=== PATIENT | male | born 1985 | race Caucasian/White ===

== ENCOUNTER → 2024-09-05 13:19 | Outpatient (BNVA) | payer SELFPAY | PROVIDERS: Visit Provider Physician Assistant | DX: Z02.79 Encounter for issue of other medical certificate (principal) ==

== ENCOUNTER → 2024-10-16 09:28 | Outpatient (REF) | payer OTHER, SELFPAY ==
--- NOTE | 2024-10-16 09:36 | ECG_ITS ---
Test Reason : R/O QTC [place] Blood Pressure : */* mmHG Vent. Rate : 113 BPM Atrial Rate : 113 BPM P-R Int : 170 ms QRS Dur : 90 ms QT Int : 316 ms P-R-T Axes : 87 90 64 degrees QTcB Int : 433 ms Sinus tachycardia Rightward axis Borderline ECG No previous ECGs available Referred By: Santa Kaplan Electronically Signed By: LILIAN ROBIN MD
--- OUTSIDE RECORDS SUMMARY | 2024-10-16 10:11 | XMS_ITS | Clinical Summary ---
Author Organization [employer] Address [address] [place] [address] Care Team Providers Care Mems Device Scientist Name Role Phone Unavailable Primary Care Provider Unavailabl e Social History Tobacco Use Types Packs/Day Years Used Date Smoking Tobacco: Never Assessed Sex and Gender Information Value Date Recorded Sex Assigned at Not on file Legal Sex Male 8:37 PM EDT Gender Identity Not on file Sexual Orientation Not on file Plan of Treatment Health Maintenance Due Date Last Done Comments Depression Screening 1984 Lipid Panel 1984 Alcohol/Substance Use Screening 1996 Tobacco Screening 1996 Family Planning (PISQ) 08/20/1999 DTaP/Tdap/Td Vaccines (1 - Tdap) 08/20/2003 Hepatitis B Vaccines (1 of 3 - 19+ 3-dose series) 08/20/2003 COVID-19 Vaccine ( - 2023-2 5 season) 2024 Influenza Vaccine (#1) 2024 Zoster Vaccines (1 of 2) 2034 RSV Patients and Pa tients Aged 60 years or older (1 - 1-dose 75+ series) 08/20/2059 HIB Vaccines Aged Out No longer eligi ble based on patient's age to complete this topic HPV Vaccines Aged Out No longer eligi ble based on patient's age to complete this topic Hepatitis A Vaccines Aged Out No long er eligible based on patient's age to complete this topic IPV Vaccines Aged Out No longer eligi ble based on patient's age to complete this topic Meningococcal Vaccine Aged Out No lorena bj eligible based on patient's age to complete this topic Pneumococcal Vaccine: Pediat rics (0 to 5 Years) and At-Risk Patients (6 to 49) Years) Aged Out No longer eligible b ased on patient's age to complete this topic RSV under 20 months Aged Out No longe r eligible based on patient's age to complete this topic Rotavirus Vaccines Aged Out No longer eligible based on patient's age to complete this topic
--- OUTSIDE RECORDS SUMMARY | 2024-10-16 10:11 | XMS_ITS | Data Portability ---
Author Organization ARN[facility] , [address] Address [address] [place] [address] Assessment No assessment recorded. Plan of Treatment Reminders Order Date Submit Date Provider Last Modified By Organization Details Last Modified Time Details Appointments None recorded. Lab None recorded. Referral None recorded. Procedures None recorded. Surgeries None recorded. Imaging None recorded. Medication Orders amoxicillin 875 mg-potassiu m clavulanate 125 mg tablet 2023 024 [facility] [place], [place], [address] [place], [address], 4 09:31:24 Patient TargetsNo targets recorded. Patient Instructions Encounter Date Encounter Id Patient Instructions Last Modified By Organization Details Last Modified Time 09/24/2023 [id number] abscessed tooth: care instructions [email or web address] Not available 09/24/2023 09:24:56 Reason for Referral None Reported. Problems Name Problem SNOMED Code Status Onset Date Resolution Date Notes Provider Name and Address Organization Details Recorded Time Dental abscess 664378366 Active 024 Ahmet Rodriguez NP [address] [place] [address] [place], [address] , [facility] 4 09:21:23 Problem Notes None recorded. Medical Equipment None Reported. Allergies Allergen ID Allergen Name Allergen Category Reaction Reaction Severity Criticality Documentation Date Start Date Code Code System Note Provider Name and Address Organization Details Recorded Time 643786 morphine medicatio n hallucina tions Not available Not available 09/24/2023 7052 [facility] ARNOLDO Ko [facility] 4 08:58:02 Medications Name Sig Start Date Stop Date Status Note LastModified by Organization Details LastModified Time clonidine HCl 0.1 mg tablet 09/23 completed Not Available Not Available Not Available trazodone 50 mg tablet TAKE 1 TABLET BY MOUTH DAILY AT BEDTIME active Not Available Not Available No t Available citalopram 10 mg tablet Take 1 Tablet by mouth daily. active Not Available Not Available No t Available naltrexone 50 mg tablet TAKE 1 TABLET BY MOUTH DAILY NEEDED 09/23 completed Not Available Not Available Not Available thiamine HCl (vitamin B1) 100 mg tablet TAKE 1 TABLET BY MOUTH DAILY IN THE MORNING active Not Available Not Available No t Available hydroxyzine pamoate 50 mg capsule Take 1 Capsule by mouth 3 times daily as needed for Anxiety. active Not Available Not Available No t Available propranolol 10 mg tablet 09/23 completed Not Available Not Available Not Available citalopram 20 mg tablet active Not Available Not Available Not Available trazodone 100 mg tablet TAKE 1 TAB BY MOUTH AT BEDTIME active Not Available Not Available No t Available lidocaine 5 % topical patch active Not Available Not Available Not Available folic acid 1 mg tablet Take 1 tablet every day by oral route in the morning for 28 days. active Not Available Not Available No t Available hydroxyzine HCl 25 mg tablet Take 1 Tablet by mouth 3 times daily as needed for Anxiety. active Not Available Not Available No t Available ergocalcifer ol (vitamin D2) 1,250 mcg (50,000 unit) capsule Take 1 Capsule by mouth once a week. active Not Available Not Available No t Available amoxicillin 875 mg-potassium clavulanate 125 mg tablet Take 1 tablet every 12 hours by oral route with meal(s) for 10 days, for tooth infectio n. active Not Available Not Available No t Available hydroxyzine pamoate 25 mg capsule TAKE 1 CAPSULE BY MOUTH 4 TIMES DAILY NEEDED FOR ANXIETY active Not Available Not Available No t Available cyclobenzapr ine 5 mg tablet active Not Available Not Available Not Available acamprosate 333 mg tablet,delay ed release TAKE 2 TABLETS BY MOUTH THREE TIMES DAILY FOR 7 DAYS active Not Available Not Available No t Available pregabalin 75 mg capsule take 1 capsule by mouth twice a day 09/23 completed Not Available Not Available Not Available Vivitrol 380 mg intramuscula r suspension,e xtended release 09/23 completed Not Available Not Available Not Available Vitals Date Recorded Body height Body mass index (BMI) Body weight Respiratory rate Pain severity - 0-10 verbal numeric rating [Score] - Reported Heart rate Oxygen saturation Oxygen saturation in Arterial blood by Pulse oximetry Body temperature Systolic blood pressure Diastolic blood pressure Provider Name and Address Organization Details Last Updated DateTime 172.72 cm 29.6 kg/m2 77938.5 1 g 18 /min 2 74 /min 100 % 100 % 97.9 [degF] 104 mm[Hg] 72 mm[Hg] Delores Haddad [employer] 09:03:19 Social History Question Answer Notes LastModified by [employer] Details LastModified Time Tobacco Smoking Status Current Every Day Smoker [facility] 09/24/2023 09:00:40 Have You Had A Flu Shot This Season? No Information not available 09/24/2023 If No, Would You Like A Flu Shot Today? No Information not available 09/24/2023 Have You Had Direct Contact, Or Contact During Intimacy, With Monkeypox Rash, Scabs, Or Body Fluids From A Person With Monkeypox? No Information not available 09/24/2023 What Was The Date Of Your Most Recent Tobacco Screening? 09/24/2023 Information not available 09/24/2023 How Much Tobacco Do You Smoke? 0.25 PPD Information not available 09/24/2023 Have You Recently Traveled Abroad? No Information not available 09/24/2023 Sex: Unknown Functional Status Question Answer Note LastModified by [employer] Details LastModified Time Do you use any illicit or recreational drugs? No Information not available 09/24/2023 Do you or have you ever used any other forms of tobacco or nicotine? No Information not available 09/24/2023 What is your level of alcohol consumption? Occasional Information not available 09/24/2023 Mental Status None recorded. Family History Relationship Description Onset Age of this Age Resolved Age Notes LastModified by Organization Details LastModified Time Father No current problems or disability Not available 09/23 08:59:57 Mother No current problems or disability Not available 09/23 08:59:57 Mother Diabetes mellitus Not available 2023 09:00:06 Medical History No medical history recorded. Immunizations Vaccine Type Date Status Note Provider Nam e and Address Organization Details Recorded Time Tdap 3 completed Delores herny PA - [facility] 09/24/2023 08:55:42 Td (adult), 2 Lf tetanus toxoid, preservative free, adsorbed 1 completed Delores henry PA - [facility] 09/24/2023 08:55:42 Td (adult), 2 Lf tetanus toxoid, preservative free, adsorbed 7 completed Delores henry PA - [facility] 09/24/2023 08:55:42 Past Encounters Encounter ID Performer Location Encounter Start Date Encounter Closed Date Diagnosis/Indication Diagnosis SNOMED-CT Code Diagnosis ICD10 Code Diagnosis Note [id number] [facility] [address] [place] [address] [id number] 05/12/2018 10:55:44 05/12/2018 11:11:[id number] [place] [address] [facility] [place] [address] [id number] 12/10/2018 11:11:30 12/10/2018 12:18:57 [id number] [facility] [address] [place] [address] [id number] 09/05/2018 12:59:58 09/05/2018 14:55:15 [id number] [address] [address] [place] [address] [id number] 03/31/2020 09:44:20 03/31/2020 10:32:[id number] [place], [place] [address] [address] [place] [address] [id number] 03/11/2022 18:39:14 03/11/2022 19:41:53 [id number] Ahmet Rodriguez NP [address] [place] [address] [id number] 09/24/2023 08:26:30 09/24/2023 09:32:52 Dental abscess [id number] K04.7 Based on your presentati on and exam, you are being treated for a Dental Infection. I am going to prescribe you and antibiotic to cover this infection. Please be sure to complete the full course of this antibiotic to prevent antibiotic resistance . Antibiotic s will typically take 4-5 days to start to work with symptom improvemen t. The following are my other recommenda tions to help with symptoms and is important for this diagnosis: 1. Take Ibuprofen or Tylenol if you do not have any allergies to these medication s. If you take a blood thinner you should not take NSAIDS like Ibuprofen. These medication will help with the inflammati on in your respirator y tract which should help the cough.2. Half Peroxide/H michelle Water Rinses3. Make an appointmen t with a dentist - tooth infection will be helped with antibiotic s but they usually just continue to reoccur. The only treatment is really a root canal or tooth extraction .4. Oralgel can help alleviate some of the symptoms - this can be purchased OTC5. Ice is ok to help with symptoms, but do not apply heat. I would be seen again if you develop any of the following symptoms.1 . Fever > 101.02. Stiff neck - where you can't turn your neck3. Trouble swallowing your saliva - drooling4. Swelling of a lymph node in your throat that is painful to touch5. Difficulty breathing6 . Severe Headache7. Significan t facial swelling especially if it move up close to your eye. Thank you for using [employer] today, please feel free to contact our office if you have any questions or concerns. Health Concerns Section Related Observation LastModified by Organization Detai ls LastModified Time None Recorded Concern Status LastModified by Organization Details LastModified Time None Recorded Advance Directives Directive None Recorded Payers Insurance Date Sequence Insurance Name Policy Number Policy Boudreaux Covered Member ID Boudreaux Member ID Guarantor Name 09/24/2023 1 [facility]ALTH NET PLAN (MEDICAID HMO) KRAIGBRENDASARANYA Larson [id number] Gael Larson Notes Date Note Type Note Provider Name and Address Organization Details Recorded Time 09/24/2023 text/html Dental ProblemRe ported bypatient.source of patient informationsource of patient information patient; carious teeth, decay and swelling left upper cheek. multiple teeth especially left upper broken , swollen gums . Onset2 days; 2 weeks ago; worse; chronic Locationupper; first premolar; second premolar; wisdom tooth/third molar Symptomspain;gingival swelling Treatment:upcoming dental appointment; past dental surgery Ahmet Rodriguez NP [address] [place], [address], [place] - [facility] 09/24/2023 09:28:36
--- OUTSIDE RECORDS SUMMARY | 2024-10-16 10:11 | XMS_ITS | Encounter Summary ---
Author Organization [facility] Address [address] [place] [address] Care Team Providers Care Burning Supervisor Name Role Phone Flor Nixon MD Primary Care Provider Reason for Visit * Reason Onset Date Comments Lab Tests 09/12/2024 Encounter Details Date Type Department Care Team ([facility] st Contact Info) Description 09/12/2024 Telephone Adult Medicine - [place] [address] [place] [id number] Flor Nixon MD [address] [place] [address] Lab Tests Social History Tobacco Use Types Packs/Day Years Used Date Smoking Tobacco: Every Day Cigarettes 0.5 22.1 Started: 09/17/2002 Smokeless Tobacco: Never Alcohol Use Standard Drinks/Week Comments No 0 (1 standard drink = 0.6 oz pur e alcohol) Sex and Gender Information Value Date Recorded Sex Assigned at Not on file Legal Sex Male 2:53 PM EST Gender Identity Not on file Sexual Orientation Not on file documented as of this encounter Progress Notes * Agustina Trejo LPN - 09/23/2024 11:28 AM EDT Request for records faxed to [facility], work connection and [phone] to obtain information for pt's upcoming apt on 10/03/[address] Nixon * Ute Henderson RN - 09/19/2024 4:56 PM EDT Call to patient. Scheduled for 10/03 at 10:30. Attempted to call Work Connection Already closed at 4:30 To clinical pool to obtain notes * Flor Nixon MD - 09/19/2024 4:41 PM EDT Book him with me on 10/03/24 at 10.30 AM( 30 min appt). * Flor Nixon MD - 09/19/2024 4:40 PM EDT I have never met the patient, Can we get the DOT physical notes and EKG( if done by them). * Bruno Allen - 09/13/2024 12:25 PM EDT Pt calling in, soonest available is not until 10/24/24 with anyone in the office. Pt needs an appointment much sooner than that or pt's DOT card will be by then. Pls advise, pt can be called back at [phone]. Thx. * Allen Ocampo - 09/12/2024 3:24 PM EDT Patient who had his DOT Physical already needs a f/u of EKG and urinalysis due to having a high protein in urine and a of pulse 143. He needs paperwork to say that he is okay to work by the retesting. Please call patient once orders are placed: [phone] documented in this encounter Plan of Treatment Upcoming Encounters Date Type Department Care Team (Late st Contact Info) Description 10/29/2024 11:00 AM EDT Office Visit Adult Medicine - [place] [address] [place] [address] Stefan Ceja PA [address] [place] [address] documented as of this encounter Visit Diagnoses Not on filedocumented in this encounter Care Teams Burning Supervisor Relationship Specialty Start Date End Date Flor Nixon MD [address] [place] [address] PCP - General 11/06/23 documented as of this encounter
--- OUTSIDE RECORDS SUMMARY | 2024-10-16 10:11 | XMS_ITS | Clinical Summary ---
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 Do not crush, chew, or split. BRIDGE OF CHANGES Active Active Problems Problem Noted Date Diagnosed Date QT prolongation 09/26/2022 Adjustment insomnia 08/04/2022 Alcoholic cirrhosis (CMS/HCC V24, CMS/HCC V28) 0 08/04/2022 Anxiety and depression 08/04/2022 Elevated LFTs 09/26/2018 Alcohol abuse 09/17/2018 Tobacco use disorder 09/13/2010 Encounters Date Type Department Care Team Description 09/12/2024 Telephone Adult Medicine - [place] [address] [place] [address] Flor Nixon MD Lab Tests from Last 3 Months Immunizations Name Administration Dates Next Due PPD Test 08/20/2012 Td Tetanus diptheria (Tdvax) 7yo and older 07/21,03/21/1997 Tdap Tetanus diptheria acell ular pertussis (Boostrix; Adacel) 7yo and older 06/01/2023 Surgical History Surgery Date Site/Laterality Comments BACK SURGERY PROCEDURE: HISTORICAL BACK SURGERY; COMMENT: NEOS-microdiscectomy L5-L5 Medical History Medical History Date Comments Tobacco use disorder 09/13/2010 DX:Tobacco use disorder Alcohol abuse 09/17/2018 DX:Alcohol abuse Family History Medical History Relation Name Comments Diabetes Father Hypertension Father Alcohol abuse Maternal Grandfather Other: liver transplant Maternal Grandfather Colon cancer Maternal Grandmother 80s or 90s Diabetes Maternal Grandmother Diabetes Mother Other: thyroid problem Mother NOT c ancer Diabetes Paternal Grandmother Other: type 1 diabetes Sister Relation Name Status Comments Brother Alive Father Alive Maternal Grandfather Maternal Grandmother Alive Mother Alive Paternal Grandfather (Age ?) ? Paternal Grandmother (Age 70s) Sister Alive Social History Tobacco Use Types Packs/Day Years [...] on file Sexual Orientation Not on file Obstetrics History Last Filed Vital Signs Vital Sign Reading Time Taken Comments Blood Pressure 110/61 05/07/2024 2:28 PM EST Pulse 128 05/07/2024 2:28 PM EST Temperature 36.8 ??C (98.3 ??F) 05/07/2024 2:28 PM ES T Respiratory Rate - - Oxygen Saturation - - Inhaled Oxygen Concentration - - Weight 85.3 kg (188 lb) 05/07/2024 2:28 PM EST Height 170.2 cm (5' 7 ) 05/07/2024 2:28 PM EST Body Mass Index 29.44 05/07/2024 2:28 PM EST Plan of Treatment Upcoming Encounters Date Type Department Care Team (Late st Contact Info) Description 10/29/2024 11:00 AM EDT Office Visit Adult Medicine [facility] [address] [place] [address] Stefan Ceja PA [address] [place] [address] Health Maintenance Due Date Last Done Comments Hepatitis A Vaccines (1 of 2 - Risk 2-dose series) 08/20/2003 Hepatitis B Vaccines (1 of 3 - 19+ 3-dose series) 08/20/2003 Pneumococcal Vaccine: Pediatrics (0 to 5 Years) and At-Risk Patients (6 to 64 Years) (1 of 2 - PCV) 08/20/2003 Hepatitis C Screening 05/14/2022 Social Influencers of Health Screening 05/14/2022 COVID-19 Vaccine (1 - 2023-2 5 season) 2024 Depression Screening 11/05/2024 11/06/2023 Influenza Vaccine (Season Ended) 2025 Cholesterol Screening (Lipid Panel) 06/01/2028 06/01/2023 DTaP,Tdap,and Td Vaccines (4 - Td or Tdap) 06/01/2033 06/01/2023, 07/21/2010, 03/21/1997 HIV Screening Completed 08/05/2004 HIB Vaccines Aged Out No longer eligi ble based on patient's age to complete this topic HPV Vaccines Aged Out No longer eligi ble based on patient's age to complete this topic IPV Vaccines Aged Out No longer eligi ble based on patient's age to complete this topic MMR Vaccines Aged Out No longer eligi ble based on patient's age to complete this topic Meningococcal ACWY Vaccine Aged Out N o longer eligible based on patient's age to complete this topic Meningococcal B Vaccine Aged Out No l onger eligible based on patient's age to complete this topic RSV Immunization Patients Under 20 months Aged Out No longer eligible b ased on patient's age to complete this topic Varicella Vaccines Aged Out No longer eligible based on patient's age to complete this topic Procedures Procedure Name Priority Date/Time Associated Diagnosis Comments DEPRESSION SCREENING Routine 11/06/2023 LIPID PANEL Routine 06/01/2023 HIV SCREENING Routine 08/05/2004 from Last 3 Months or Most Recently Relevant to Health Maintenance Results * Depression Screening (11/06/2023) Depression Screening Abstracted us Historical Provider HEALTH MAINTENANCE Final Result * (ABNORMAL) Lipid panel (06/01/2023) LDL/HDL Ratio 3 0 - 4 Triglycerides 97 0 - 150 mg/dL Cholesterol 200 0 - 200 mg/dL HDL 62 >=40 mg/dL LDL Cholesterol 119(A) 0 - 100 mg/dL Blood Venous blood specimen / Unknown Historical Provider LAB BLOOD ORDERABLES Jeannine l Result * HIV Screening (08/05/2004) HIV Screening Abstracted us Historical Provider HEALTH MAINTENANCE Final Result from Last 3 Months or Most Recently Relevant to Health Maintenance Insurance [facility] Care Teams Industrial Maintenance Millwright Relationship Specialty Start Date End Date Flor Nixon MD [address] [place] [id number] PCP - General 11/06/23
--- OUTSIDE RECORDS SUMMARY | 2024-10-16 10:11 | XMS_ITS | Clinical Summary ---
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 Name Role Phone Unavailable Primary Care Provider Unavailabl e Source Comments PLEASE NOTE, if this patient is a minor, it may be UNLAWFUL to discuss sensitive information that is contained in these records (such as FAMILY PLANNING, MENTAL HEALTH or SUBSTANCE ABUSE) with the minor patient's parent or other person without the patient's specific authorization.[facility] Medications acetaminophen (TYLENOL) 500 mg tabletIndicatio ns:Retained tooth root Take 1 Tablet by mouth every 6 (six) hours as needed for pain 20 Tablet 03/15/2024 Active amoxicillin (AMOXIL) 500 mg capsuleIndicati ons:Retained tooth root Take 1 Capsule by mouth 3 (three) times daily 21 Capsule 03/15/2024 Active amoxicillin (AMOXIL) 500 mg capsuleIndicati ons:Retained tooth root Take 1 Capsule by mouth 3 (three) times daily 21 Capsule 05/15/2024 Active acetaminophen (TYLENOL) 500 mg tabletIndicatio ns:Retained tooth root Take 1 Tablet by mouth every 6 (six) hours as needed for pain 20 Tablet 05/15/2024 Active Active Problems No known active problems Social History Tobacco Use Types Packs/Day Years Used Date Smoking Tobacco: Never Assessed Social Connections Answer Date Recorded Connectedness 0 02/19/2024 Financial Resource Strain Answer Date R ecorded Financial Resource Strain 0 2023 Stress Answer Date Recorded Stress 0 11/14/2023 Physical Activity Answer Date Recorded Physical Activity 0 11/14/2023 Food Insecurity Answer Date Recorded Food 0 02/29/2024 Transportation Needs Answer Date Record ed Transportation 0 11/14/2023 Housing Stability Answer Date Recorded Housing 0 11/14/2023 Safety and Environment Answer Date Dada rded Safety 0 11/14/2023 Utilities Answer Date Recorded Utilities 0 11/14/2023 Employment Answer Date Recorded Stress 0 02/19/2024 Sex and Gender Information Value Date Recorded Sex Assigned at Not on file Legal Sex Male 8:10 AM PDT Gender Identity Not on file Sexual Orientation Not on file Last Filed Vital Signs Vital Sign Reading Time Taken Comments Blood Pressure 132/84 07/18/2024 9:59 AM EST Pulse 115 07/18/2024 9:59 AM EST Temperature - - Respiratory Rate - - Oxygen Saturation - - Inhaled Oxygen Concentration - - Weight - - Height - - Body Mass Index - - Plan of Treatment Upcoming Encounters Date Type Department Care Team (Late st Contact Info) Description 11/11/2024 10:20 AM EDT Office Visit [facility] [address] [place] [phone] Luci Corley, DDS [address] [place] [address] Health Maintenance Due Date Last Done Comments Anxiety Screening 1984 Diabetes Screening 1984 Hepatitis C Screening 1984 Tobacco Screening 1984 HIV Screening 08/20/1999 Imm-Hepatitis B (1 of 3 - 19 + 3-dose series) 08/20/2003 [id number] ( season) 2024 Imm-Influenza (#1) 2024 Alcohol and Drug Screen 06/05/2024 Depression Annual Screen 06/05/2024 Dental Examination 02/09/2025 02/08/2024 Hypertension Screening (#1) 07/18/2025 Lipid Screening 06/01/2028 06/01/2023 Dental FMX/Pano 03/17/2029 03/15/2024, 02/08/2024 Imm-DTaP/Tdap/Td (3 - Td or Tdap) 06/01/2033 06/01/2023, 07/21/2010, 03/21/1997 Procedures Procedure Name Priority Date/Time Associated Diagnosis Comments PANORAMIC RADIOGRAPHIC IMAGE Routine 03/15/2024 1:00 PM EDT Retained tooth root Caries Full COMP ORAL EVALUATION - NEW/ESTABLISHED PATIENT Routine 02/08/2024 4:20 PM EDT Retained tooth root Caries from Last 3 Months or Most Recently Relevant to Health Maintenance Insurance [place] MEDICAID DENT[place]
[2024-10-16 10:23] LABS: Basophils Absolute Auto 0.1 X10*3/uL (0.0-0.2); Basophils Percent Auto 0.8 % (0-2); Eosinophils Absolute Auto 0.1 X10*3/uL (0.0-0.4); Eosinophils Percent Auto 1.3 % (0-4); Hematocrit 38.2 % (42.0-52.0); Hemoglobin 13.8 g/dl (14.0-18.0); Imm Gran Abs Auto 0.03 X10*3/uL (0.00-0.03); Imm Gran Pct Auto 0.3 % (0.0-0.4); Lymphocytes Percent Auto 27.5 % (20-40); MANUAL DIFF FLAG SCAN; Mean Corpuscular HGB Conc 36.1 g/dl (31.0-36.0); Mean Corpuscular Hemoglobin 34.2 pg (27.0-33.0); Mean Corpuscular Volume 94.6 fL (80.0-98.0); Mean Platelet Volume 8.8 fL (9.4-12.4); Monocytes Absolute Auto 1.5 X10*3/uL (0.1-1.2); Neutrophils Absolute Auto 6.1 x10*3/uL (2.0-8.3); Neutrophils Percent Auto 56.1 % (45-73); Platelet Count 224 X10*3/uL (160-400); Red Blood Count 4.04 X10*6/uL (4.60-5.80); Red Cell Distribution Width 15.6 % (11.0-16.0); SCAN SMEAR FLAG 1; White Blood Count 10.9 X10*3/uL (4.8-10.8)
[2024-10-16 10:26] LABS: Estimated Average Glucose 100 mg/dL; Hemoglobin A1C 117.2147 umol/L; Hemoglobin A1c % 5.1 % (<6.0); Total Hemoglobin (HGBA1C) 3586.8819 umol/L
[2024-10-16 10:55] LABS: SLIDE REVIEW VERIFIED
[2024-10-16 11:13] LABS: Vitamin B12 454 pg/mL (200-900)
[2024-10-16 11:31] LABS: Alanine Aminotransferase 21 U/L (0-40); Albumin Level 4.1 g/dL (3.5-5.0); Alkaline Phosphatase 95 U/L (39-117); Anion Gap 17 (12-20); Aspartate Amino Transferase 39 U/L (5-37); Bilirubin Total 0.3 mg/dL (0.0-1.0); Blood Urea Nitrogen 12 mg/dL (9-16); C Reactive Protein 0.12 mg/dL (< or = 0.50); Carbon Dioxide 26 mmol/L (22-29); Chloride 106 mmol/L (96-108); Estimated Glomerular Filt Rate > 60; Ethanol 437 mg/dL; Free T4 (Free Thyroxine) 0.86 ng/dL (0.71-1.85); Gamma Glutamyl Transpeptidase 148 U/L (11-51); Glucose Random 112 mg/dL (60-115); Iron 127 mcg/dL (45-160); Magnesium 1.4 mg/dL (1.6-2.6); Percent Iron Saturation 33 % (15-50); Potassium 3.7 mmol/L (3.3-5.1); Sodium 145 mmol/L (135-145); Thyroid Stimulating Hormone 0.73 uIU/mL (0.32-4.0); Total Iron Binding Capacity 389 mcg/dL (228-428); Total Protein 7.5 g/dL (6.5-8.0); Unsaturated Iron Binding 262 ug/dL; Vitamin D 25-OH Total 17.8 ng/mL (>30)
[2024-10-17 17:28] LABS: Homocysteine 20.5 umol/L (<11.4)
== END | disposition home or self-care (01) ==
LOC: HO.CARD 09:28
PROVIDERS: Visit Provider Psychiatry & Neurology Psychiatry
DX: F10.11 Alcohol abuse, in remission (principal); F41.9 Anxiety disorder, unspecified; F32.A Depression, unspecified
CPT/HCPCS: 36415; 80053; 80307; 82306; 82607; 82977; 83036; 83090; 83540; 83735; 84425; 84439; 84443; 85025; 86140; 93005

== ENCOUNTER → 2024-10-16 09:36 | Outpatient (BNV) | payer OTHER, SELFPAY | PROVIDERS: Visit Provider Internal Medicine Cardiovascular Disease | DX: R00.0 Tachycardia, unspecified (principal) | CPT/HCPCS: 93010 ==

== ENCOUNTER 2024-10-16 11:30 | Outpatient (RCR) | payer OTHER, SELFPAY ==
[2024-10-14 12:07] VITALS: BMI 29.8
[2024-10-14 12:08] VITALS: BP 110/70; PULSE 88; TEMP 37.1
--- NOTE | 2024-10-14 12:28 | HO.PHP ---
[facility] staff member met with Gael due to him informing a staff member that he would like to leave for the day. [facility] staff member explored with Gael what was occurring where he is feeling he needs to leave for the day. Gael noted that he is feeling triggered because the stories everyone is sharing he resonates with. [facility] staff member assessed if he will be able to engage in our program if he is feeling triggered by others stories. Gael said he would be able to continue with the program and stated that today is his first day and it is overwhelming because he recently came out of detox so it is bringing up emotions for him. [facility] staff member acknowledged how he is feeling and did inform him that throughout his time here he is going to relate to others and encouraged him to focus on bringing it back to what brought him to our program. Gael appeared receptive. [facility] staff member asked Gael if he would be willing to stay to meet with the nurse and the med provider here and told him if the group is too triggering, he can take space until he is able to meet with our staff further. Gael agreed.
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
--- NOTE | 2024-10-16 15:40 | HO.PHP ---
[facility] staff member, Janessa, explored with the team if we could get a BAL on Gael due to him appearing to have slurred speech and smelling like alcohol. Gael was sent down to the lab to get his BAL completed. When Gael returned to the group setting he was disruptive and not providing helpful feedback to group members. Prior to the third group beginning, we received his BAL which was at 437, over the legal limit. Dr. Kaplan met with Gael to discuss the results but Gael denied being intoxicated. We recommended a withdrawal management program for Gael but he declined and continued to vocalize that he has not drank. Due to Gael driving into the program today, we suggested that we contact the sister to see if she is able to pick him up. Gael informed us that we cannot contact his sister and that he would do it. Throughout the day, Gael's stories were inconsistent, in which he noted that his sister was going to pick him up, then he disclosed that she is unable to cause she is working. When we informed Gael that we could get him a lyft he said that he doesn't need that and he could just drive home. Gael then mentioned that he got himself a lyft. Gael had mentioned that he was going to attend the last group of the day but did not show up. [facility] staff member Carlotta, reached out to Gael to explore where he was. Gael expressed confusion and thought he needed to get additional blood work done (was at [facility] laboratory still on campus). Gael returned to the program but was not wanting to engage in the group. [facility] staff member, Carlotta and Janessa, met with Gael when he returned, in which he expressed his confusion around the blood work and once he was provided with clarification, we encouraged him to go back to group until his lyft were to get there. We also told him not to leave and to grab us when the lyft arrives. Gael refused to return to group and kept stating he was leaving. Gael had gone outside, in which [facility] staff members followed him to make sure he would not get into his car. [facility] staff members asked Gael to show us where his car was and he had pointed it out. [facility] staff member met with Gael while outside who expressed frustration around the group dynamic. Gael apologized and said that today is just hard for him and he would like to go home. Gael stated he will return to program tomorrow. [facility] staff member pointed out how today is only his second day and he also struggled on the first day as well. [facility] staff member assessed if this program is the right fit for him and suggested withdrawal management progam. Gael said that he is triggered by the group setting and doesn't feel that groups are a good fit for him. [facility] staff member informed Gael that group settings aren't always for everyone. Gael did decline a withdrawal management program. PHP staff member did suggest going to an IOP for substance use at [facility]. PHP staff member voiced that there program is targeted more towards the substance use then the mental health aspect. Gael said that he would like the information on that, therefore, [facility] staff member brought Gael back to her office to provide him with that information and complete the discharge paperwork. [facility] staff member offered to assist with contacting [facility] together but he declined and voiced that he will call on his own. After the PHP staff member completed that portion, she asked Gael to wait in one of the empty group rooms because Dr. Kaplan may need to meet with him. Gael was receptive and went into group room A. Rosario was in the kitchen area where group room A is off of and was asked to text the team if Gael tries to leave the program. When [facility] staff member returned to the office, Carlotta had suggested that we contact security to make sure that Gael does not try to get into his car. [facility] staff members, Janessa Laguerre, and Dr. Kaplan contacted security and informed them that Gael has a BAL of 437, in which he stated he ordered a lyft but are uncertain if he did. We explored with security what should we do in this situation since we wanted to make sure that Gael would be safe and not drive. Security mentioned that they would come to talk with him to make sure he does not leave our program. [facility] staff members were receptive. [facility] staff member, Janessa went to see if security was outside and while on her way outside, Gael came out of the group room. PHP staff member asked if the lyft was here. Gael disclosed that the lyft is 20 minutes away. PHP staff member asked if she could see where the lyft drivers location is. Gael voiced that his phone is in the car. [facility] staff member asked him how he knew they were 20 minutes away if he doesn't have his phone. Gael mentioned that he has headphones in that told him. [facility] staff member stated to Gael that he does not have any headphones. Gael got upset and said he is going outside, that is when security walked in. There were two security guards that came to meet with Gael. The security team was updated prior to meeting with him around the status on Gael. One of the security guards explored with Gael if he was drinking, he denied having any alcohol and the computer systems security administrator pointed out that he can smell it on his breath. Gael said of course you can. The security guards were then asking about the lyft and his story was inconsistent. One of the security guards pulled the [facility] staff member to the side to explore if this is Gael's baseline. [facility] staff member stated that this is only his second day in attendance to program, in which he presented similarly the other day. We then went back outside to meet with Gael and the other computer systems security administrator. Security ended up confiscating his keys, in which Gael looked at the PHP staff member and said you did this, this is all your fault. Gael then started to escalate by swearing at security. Gael started to walk away, in which security followed. [facility] admin asked about the lyft in which she was informed he doesn't have a lyft, so she had gotten a staff member who could get Gael a lyft home. The lyft ended up being cancelled because security informed [facility] staff that the police department are going to come to address this situation. After about 20 minutes, the computer systems security administrator returned and mentioned that at this time, Gael is waiting for his sister to pick him up in the Emergency Room. Security spoke to the sister directly. Security still is holding on to Gael's keys and mentioned that when Gael's sister arrives they will be providing her with the keys. Security voiced that if things escalate or he is not cooperative, then then will be reaching out to the police department.
--- NOTE | 2024-10-18 03:05 | PM.EVENT ---
Event Note Date of Service: 10/16/24 Event Note: I was approached by staff who were voicing concerns about patient possibly being intoxicated, specifically smelled strongly of alcohol. When approached, patient denied any alcohol or substance use. Patient is noted to be dysarthric however he indicates that this is due to his dentures. He also appears slightly ataxic, patient responds that he ?feeling wonky today because of the Lexapro 2.5 mg he started yesterday. He still has outstanding lab work, was given lab slip 2 days ago, and agreed this morning to go down to the lab this morning to get blood work done. Paged with critical magnesium 1.4 and BAL 437. Patient insists he did not drink last night and was dismissive and not willing to consider any substance use treatment options. I also express concern that patient had driven to the program this morning and feel he can not be allowed to drive himself home today. He was offered a Lyft/taxi home, or to a [facility] trtmt facility, that the program could provide for him, but patient declined and insisted to call his sister for a ride. He stated he did not want staff reaching out and speaking with his sister and that he would coordinate a ride to be picked up at end of the day. He was informed that he would need to inform staff once his sister arrives so that he could be observed being picked up, which he reluctantly agreed to. I have asked that Time Spent With Patient Time: Total time managing care of this patient today _30___ minutes.
== END 2024-10-16 23:59 | disposition home or self-care (01) ==
LOC: HO.PHPA 11:30
PROVIDERS: Visit Provider Psychiatry & Neurology Psychiatry
DX: F10.90 Alcohol use, unspecified, uncomplicated (principal); F32.A Depression, unspecified
CPT/HCPCS: 90791; 90853

== ENCOUNTER → 2025-01-20 10:36 | Outpatient (BNVA) | payer SELFPAY | PROVIDERS: Visit Provider Physician Assistant Medical | DX: Z02.79 Encounter for issue of other medical certificate (principal) ==

== ENCOUNTER 2025-04-05 13:13 | Emergency (ER) | payer OTHER, SELFPAY ==
[2025-04-05 13:16] VITALS: BP 106/81; PULSE 132; RESP 18; TEMP 36.3; O2SAT 93; BMI 32.3
--- NOTE | 2025-04-05 13:16 | ED.UPPEXIN ---
HPI - Extremity Injury (Upper) General Chief Complaint: Extremity Injury, Upper Stated Complaint: fall, arm inj Time Seen by Provider: 04/05/25 14:05 Source: patient Mode of arrival: ambulatory Limitations: no limitations History of Present Illness ED Provider: Stefania Dvuall APRN HPI narrative: 39yo male with history of anxiety, depression who is ambidextrous presents to the ER with complaints of left shoulder pain after a trip and fall yesterday hitting the left shoulder. Denies hitting head or LOC. Reports he missed a step going into a business. He went to [facility] and had an x-ray which showed a humeral fracture per the patient. He was placed in a sling and given recommendations to follow-up with orthopedics outpatient. He took ibuprofen 600mg at 3am and 2 tablets of Tylenol today but did not feel that it helped his pain. He comes to [place] [facility] because he wants to a second opinion and better pain control. He denies any associated numbness, tingling or weakness. Related Data Previous Rx's ?Medication ?Instructions ?Recorded escitalopram oxalate 5 mg tablet 5 mg PO DAILY #20 tabs 10/15/24 naltrexone 50 mg tablet 50 mg PO DAILY #30 tabs 10/15/24 magnesium glycinate 200 mg (2 x 100 mg magnesium) PO 10/18/24 BID #120 caps Allergies Allergy/AdvReac Type Severity Reaction Status Date / Time morphine Allergy Hallucinati Verified 04/05/25 13:21 ons Review of Systems Review of Systems: Yes all other systems are reviewed and are negative Constitutional: Constitutional: Reports no additional constitutional complaints, Denies body ache(s), Denies chills, Denies fever(s), Denies headache(s) and Denies weakness Eyes: Eyes: Reports no additional eye complaints and Denies change in vision ENT: Reports system reviewed and no additional complaints, except as documented, Denies dizziness, Denies headache(s), Denies nasal congestion, Denies nasal discharge and Denies neck pain Cardiovascular: Cardiovascular: Reports no additional cardiovascular complaints, Denies chest pain, Denies leg edema and Denies dyspnea Respiratory: Respiratory: Reports no additional respiratory complaints, Denies cough and Denies dyspnea Gastrointestinal: Gastrointestinal: Reports no additional gastrointestinal complaints, Denies abdominal pain, Denies diarrhea, Denies nausea and Denies vomiting Genitourinary: Genitourinary: Denies urinary incontinence Musculoskeletal: Musculoskeletal: Reports no additional musculoskeletal complaints, Denies back pain, Reports arthralgias, Denies joint swelling, Reports limited range of motion, Denies neck pain, Denies numbness and Denies tingling Integumentary/Breasts: Skin/Breast: Reports system reviewed and no additional complaints, except as docu and Denies rash Neurologic: Reports system reviewed and no additional complaints, except as documented, Denies Abnormal speech present, Denies dizziness, Denies headache(s), Denies numbness, Denies tingling and Denies weakness [facility] Past Medical History Attestation statement: The following information was validated with the patient. Source: old records reviewed and nursing notes reviewed Medical History Fatty liver Alcoholic cirrhosis of liver Surgical History H/O thumb surgery History of back surgery Social History Social History Household Members: Family and Other Household Members Other:: Sister and Sister's fiance Patient Tobacco Use Status: Current everyday Tobacco user Tobacco use type: Cigarette Cigarettes Per Day: 5 Advance Directives: No Advance Directives Information Provided: Yes Do you have a plan to hurt others: No Plan Physical Exam Vital Signs: Vital Signs: Last Vital Signs Temp 0 F L 04/05/25 15:41 Pulse 103 H 04/05/25 15:41 Resp 18 04/05/25 15:41 BP 130/78 04/05/25 15:41 Pulse Ox 92 04/05/25 15:41 O2 Del Method Room Air 04/05/25 15:41 BMI result Body Mass Index 32.3 Const: General: cooperative, healthy appearing, comfortable and no acute distress Orientation/consciousness: patient oriented x3 Limitations: no limitations HEENT: Head: Yes normal to inspection Ears: hearing grossly normal bilaterally General nose exam: Normal external nose present Face and sinus: Yes normal facial exam Mouth: Normal oral and palatal mucosa present Throat: Yes posterior oropharynx normal Eyes: General: appearance normal, both eyes and all related structures Pupils: Equal, round and reactive pupils present Neck: Neck: Yes normal visual inspection Chest: Chest palpation & inspection: normal inspection of the chest Resp: Effort & Inspection: normal respiratory effort Auscultation: clear to auscultation bilaterally Cardio: Rate: regular rate Rhythm: regular rhythm Peripheral pulses: Peripheral pulses 2+ throughout GI: Inspection: Yes normal to inspection Palpation (GI): Soft to palpation and nontender Auscultation: normal bowel sounds Back/Spine/Pelvis: Thoracic/Lumbar Spine: thoracic and lumbar spine normal to inspection Skin: General skin exam: no rashes or lesions noted Neuro: General: patient oriented x3, no focal motor deficits and normal sensation to monofilament Cranial nerves: Yes Equal, round and reactive pupils present Cognition (Neuro): normal cognition Speech: No Abnormal speech present Gait exam (Neuro): Normal gait present Motor exam (neuro): 5/5 motor strength present throughout Extrem: Other: There is pain on palpation to the proximal humerus 2+ radial/ulnar pulses Normal distal sensation No pain on palpation to the distal joints with FROM. Course Course Course Narrative: This is a Rapid Medical Exam performed in triage by Julissa Ontiveros PA-C. Full HPI, ROS and PE to be performed by primary ED provider. 39 yo M w/pmhx fatty liver presenting to the ED continued left upper arm pain s/p mechanical trip and fall yesterday when walking through a doorway. Admits went to [facility] and was diagnosed with broken arm. States he is looking for pain control and answers. PE: LUE in sling. Tachycardic. + ETOH odor on breath. LUE NV intact Plan: labs, tox screen, EKG Reevaluation(s) Reevaluation #1: I do not believe the patient needs a CT at this time. He can follow up outpatient with Orthopedic surgery and they can do it outpatient. Sounds like he is not taking Motrin Tylenol as frequently as he is able to. I think if he optimizes this he will have better pain control. We did change his sling which was more comfortable for him. He did want to leave but I wanted him to wait for a sober ride as he is intoxicated with a BAL 380. Reevaluation #2: 0545-patient's family arrived to take him home, walks with a steady gait. Medications Administered Discontinued Medications Generic Name Dose Route Start Last Admin Trade Name Freq PRN Reason Stop Dose Admin Ibuprofen 600 mg 04/05/25 14:55 04/05/25 15:04 Ibuprofen 600 Mg Tablet PO 04/05/25 14:56 600 mg ONCE ONE Administration Medical Decision Making Medical Decision Making [facility] Narrative: 39yo male with history of anxiety, depression who is ambidextrous presents to the ER with complaints of left shoulder pain after a trip and fall yesterday hitting the left shoulder. Denies hitting head or LOC. Reports he missed a step going into a business. He went to [facility] and had an x-ray which showed a humeral fracture per the patient. He was placed in a sling and given recommendations to follow-up with orthopedics outpatient. He took ibuprofen 600mg at 3am and 2 tablets of Tylenol today but did not feel that it helped his pain. He comes to [place] [facility] because he wants to a second opinion and better pain control. He denies any associated numbness, tingling or weakness. There is pain on palpation to the proximal humerus 2+ radial/ulnar pulses Normal distal sensation No pain on palpation to the distal joints with FROM. Will obtain records from [facility] Patient is intoxicated appearing, +alcohol on breath, initial hr 130's Labs ordered from triage show BAL 380 Patient denies alcohol use and report hes been sober for one month Will need sober ride home Differential Diagnosis Differential Diagnoses: The differential diagnosis associated with the presentation includes Fracture, sprain, strain, dislocation Alcohol intoxication Admission/Observation Consideration of admission/observation: Escalation of care including admission/observation considered Lab Data [facility] Lab Attestation statement: I reviewed the patient's lab results. 04/05/25 13:33 04/05/25 13:33 Labs: Lab Results 04/05/25 Range/Units 13:33 WBC 13.7 H (4.8-10.8) X10*3/uL RBC 4.20 L (4.60-5.80) X10*6/uL Hgb 13.8 L (14.0-18.0) g/dl Hct 40.0 L (42.0-52.0) % MCV 95.2 (80.0-98.0) fL MCH 32.9 (27.0-33.0) pg MCHC 34.5 (31.0-36.0) g/dl RDW 14.2 (11.0-16.0) % Plt Count 259 (160-400) X10*3/uL MPV 9.1 L (9.4-12.4) fL Immature Gran % (Auto) 0.1 (0.0-0.4) % Neut % (Auto) 47.1 (45-73) % Lymph % (Auto) 32.8 (20-40) % Pitt % (Auto) 17.3 H (2-11) % Eos % (Auto) 2.0 (0-4) % Baso % (Auto) 0.7 (0-2) % Lymph # (Auto) 4.5 (1.2-4.9) X10*3/uL Pitt # (Auto) 2.4 H (0.1-1.2) X10*3/uL Eos # (Auto) 0.3 (0.0-0.4) X10*3/uL Baso # (Auto) 0.1 (0.0-0.2) X10*3/uL Abs Immat Gran (auto) 0.02 (0.00-0.03) X10*3/uL Absolute Neuts (auto) 6.5 (2.0-8.3) x10*3/uL Absolute Nucleated RBC 0.000 (0.0-0.012) X10*3/uL Nucleated RBC % (auto) 0.0 (0.0-0.2) /100WBC Smear Tech's Comments VERIFIED Sodium 145 (135-145) mmol/L Potassium 3.6 (3.3-5.1) mmol/L Chloride 110 H (96-108) mmol/L Carbon Dioxide 24 (22-29) mmol/L Anion Gap 15 (12-20) BUN 12 (9-16) mg/dL Creatinine 0.78 (0.5-1.4) mg/dL Estim Creat Clear Calc 141.6 Estimated GFR > 60 Random Glucose 109 (60-115) mg/dL Calcium 8.5 (8.4-10.2) mg/dL Magnesium 1.6 (1.6-2.6) mg/dL Total Bilirubin 0.2 (0.0-1.0) mg/dL Direct Bilirubin < 0.2 (0.0-0.5) mg/dL AST 28 (5-37) U/L ALT 18 (0-40) U/L Alkaline Phosphatase 97 (39-117) U/L Total Protein 6.6 (6.5-8.0) g/dL Albumin 3.8 (3.5-5.0) g/dL Ethyl Alcohol 381 H* mg/dL External Record Review External record reviewed: Outside ED record Reviewed records from [facility] which show a proximal left humeral fracture with 5 mm of displacement of the fracture fragments. The ER provider spoke to their orthopedics on-call who will follow up with the patient outpatient. They did recommend obtaining a CT further treatment planning. Prescription Management I considered prescription management with: Pain Medication Discharge Plan Discharge Clinical Impression: Alcohol intoxication, Fracture of humerus Patient Disposition: Home, Self-Care Instructions: Arm Fracture in Adults (ED), How to Use a Sling (ED), Alcohol Intoxication (ED) Additional Instructions: When used were seen at [facility] they recommended that you follow-up with Dr. Christian. You may need to have additional imaging done outpatient Use the sling for comfort, make sure you take your arm out of the sling and move it around Take ibuprofen 600 mg every 6 hours Take Tylenol 650 mg every 4 hours Apply ice to the area Prescriptions: No Action escitalopram oxalate 5 mg tablet 5 mg PO DAILY Qty: 20 0RF naltrexone 50 mg tablet 50 mg PO DAILY Qty: 30 0RF magnesium glycinate 100 mg magnesium capsule 200 mg PO BID Qty: 120 0RF Interventions: ED Discharge Assessment Last Done: 04/05/25 15:41 Discharge Date/Time: 04/05/25 15:44 Print Language: Welsh
--- NOTE | 2025-04-05 13:22 | ECG_ITS ---
Test Reason : tachycardia Blood Pressure : */* mmHG Vent. Rate : 116 BPM Atrial Rate : 116 BPM P-R Int : 166 ms QRS Dur : 82 ms QT Int : 306 ms P-R-T Axes : 77 85 41 degrees QTcB Int : 425 ms Sinus tachycardia Otherwise normal ECG When compared with ECG of 16-Oct-2024 09:44, Nonspecific T wave abnormality now evident in Inferior leads Referred By: Julissa Ontiveros Electronically Signed By: LESLIE RAMOS
[2025-04-05 13:40] LABS: Hematocrit 40.0 % (42.0-52.0); Hemoglobin 13.8 g/dl (14.0-18.0); Imm Gran Abs Auto 0.02 X10*3/uL (0.00-0.03); Imm Gran Pct Auto 0.1 % (0.0-0.4); Lymphocytes Absolute Auto 4.5 X10*3/uL (1.2-4.9); MANUAL DIFF FLAG SCAN; Mean Corpuscular HGB Conc 34.5 g/dl (31.0-36.0); Mean Corpuscular Hemoglobin 32.9 pg (27.0-33.0); Mean Corpuscular Volume 95.2 fL (80.0-98.0); NRBC Abs Auto 0.000 X10*3/uL (0.0-0.012); NRBC Pct Auto 0.0 /100WBC (0.0-0.2); Platelet Count 259 X10*3/uL (160-400); Red Blood Count 4.20 X10*6/uL (4.60-5.80); SCAN SMEAR FLAG 1; White Blood Count 13.7 X10*3/uL (4.8-10.8)
[2025-04-05 13:53] LABS: Alanine Aminotransferase 18 U/L (0-40); Albumin Level 3.8 g/dL (3.5-5.0); Alkaline Phosphatase 97 U/L (39-117); Anion Gap 15 (12-20); Aspartate Amino Transferase 28 U/L (5-37); Blood Urea Nitrogen 12 mg/dL (9-16); Calcium 8.5 mg/dL (8.4-10.2); Carbon Dioxide 24 mmol/L (22-29); Chloride 110 mmol/L (96-108); Creatinine Clr Calc Pharmacy 141.6; Estimated Glomerular Filt Rate > 60; Magnesium 1.6 mg/dL (1.6-2.6); Potassium 3.6 mmol/L (3.3-5.1); Sodium 145 mmol/L (135-145); Total Protein 6.6 g/dL (6.5-8.0)
--- OUTSIDE RECORDS SUMMARY | 2025-04-05 13:55 | XMS_ITS | Data Portability ---
Author Organization [facility] [address] Address [address] [place] [address] Assessment No assessment recorded. Plan of Treatment Reminders Order Date Submit Date Provider Last Modified By Organization Details Last Modified Time Details Appointments None recorded. Lab None recorded. Referral None recorded. Procedures None recorded. Surgeries None recorded. Imaging None recorded. Medication Orders amoxicillin 875 mg-potassiu m clavulanate 125 mg tablet 2023 024 [facility] [place], [place], [address] [place], [address], 4 09:31:24 Patient TargetsNo targets recorded. Patient Instructions Encounter Date Encounter Id Patient Instructions Last Modified By Organization Details Last Modified Time 09/24/2023 [id number] abscessed tooth: care instructions [email or web address] Not available 09/24/2023 09:24:56 Reason for Referral None Reported. Problems Name Problem SNOMED Code Status Onset Date Resolution Date Notes Provider Name and Address Organization Details Recorded Time Dental abscess [id number] Active 024 Amhet Rodriguez NP [address] [place], [address] , ARNOLDO Haddad [facility] 4 09:21:23 Problem Notes None recorded. Medical Equipment None Reported. Allergies Allergen ID Allergen Name Allergen Category Reaction Reaction Severity Criticality Documentation Date Start Date Code Code System Note Provider Name and Address Organization Details Recorded Time 669915 morphine medicatio n hallucina tions Not available Not available 09/24/2023 7052 RxNorm ARNOLDO oK [facility] 4 08:58:02 Medications Name Sig [...] blood by Pulse oximetry Body temperature Systolic And Diastolic Provider Name and Address Organization Details Last Updated DateTime 172.72 cm 29.6 kg/m2 06884.5 1 g 18 /min 2 74 /min 100 % 100 % 97.9 [degF] 104/72 mm[Hg] Delores Haddad [facility] 09:03:19 Social History Question Answer Notes LastModified by [employer] Details LastModified Time Tobacco Smoking Status Current Every Day Smoker ARNOLDO Ko [facility] 09/24/2023 09:00:40 Have You Had A [...] Functional Status Question Answer Note LastModified by [employer] Details LastModified Time Do you use any [...] Details Recorded Time Tdap 3 completed Delores henry PA - [facility] [...] Diagnosis SNOMED-CT Code Diagnosis ICD10 Code Diagnosis IMO Codes Diagnosis Note [id number] [facility] [address] [place] [phone] 7 05/12/2018 10:55:44 05/12/2018 11:11:[id number] [place] [address] [address] [facility] [address] [place] [phone] 7 12/10/2018 11:11:30 12/10/2018 12:18:57 [id number] [address] [facility] [address] [place] [phone] 7 09/05/2018 12:59:58 09/05/2018 14:55:15 [id number] [address] [facility] [address] [place] [phone] 7 03/31/2020 09:44:20 03/31/2020 10:32:41 [id number] [address] [facility] [address] [place] [phone] 7 03/11/2022 18:39:14 03/11/2022 19:41:53 [id number] Ahmet Rodriguez NP [address] [phone] 09/24/2023 08:26:30 09/24/2023 09:32:52 Dental abscess [id number] K04.7 Based on your presentati on and [...] to your eye. Thank you for using [facility] today, please feel free to contact our [...] [place] Member ID Guarantor Name 09/24/2023 1 [facility] - HEALTH NET PLAN (MEDICAID HMO) FLAQUITO Larson [id number] Gael Larson Notes Date Note Type Note Provider Name and Address Organization Details Recorded Time 4 text/html Dental ProblemReported by Patientencounter background informationFor source of patient information, patient reportssource of patient information patient(carious teeth, decay and swelling left upper cheek. multiple teeth especially left upper broken , swollen gums .).HPIFor onset, patient reports2 days,2 weeks ago,worse, andchronic.LocationFor symptoms, patient reportspainandgingival swelling. For location, patient reportsupper,first premolar,second premolar, andwisdom tooth/third molar. For treatment, patient reportsupcoming dental appointmentandpast dental surgery. Ahmet Rodriguez NP [address] [place], [address], [place] - [facility] 09/24/2023 09:28:36
--- OUTSIDE RECORDS SUMMARY | 2025-04-05 13:55 | XMS_ITS | Clinical Summary ---
Author Organization [facility] [address] [facility] Address [address] [place] [address] Phone Care Team Providers Care Dispatcher Chief Oil Name Role Phone Flor Nixon MD Primary Care Provider Allergies Active Allergy Reactions Criticality Noted Date Comments Morphine Hallucinations 06/15/2021 Medications acetaminophen (TYLENOL) 500 mg tablet Take 1 tablet (500 mg total) by mouth every 6 hours as needed. 03/15/2024 Active Active Problems Problem Noted Date Diagnosed Date QT prolongation 09/26/2022 Adjustment insomnia 08/04/2022 Alcoholic cirrhosis (CMS/HCC V24, CMS/HCC V28) 0 08/04/2022 Anxiety and depression 08/04/2022 Elevated LFTs 09/26/2018 Alcohol abuse 09/17/2018 Tobacco use disorder 09/13/2010 Encounters Date Type Department Care Team Description 02/10/2025 8:45 AM EDT Office Visit Adult Medicine [facility] [address] [place] [phone] Flor Nixon MD Routine general medical examination at a health care facility (Primary Dx); Tobacco use disorder; Anxiety and depression; Alcohol use disorder; Screening for cardiovascular condition; Encounter for hepatitis C screening test for low risk patient; Screening for diabetes mellitus from Last 3 Months Immunizations Immunization Administration Dates Next Due PPD Test 08/20/2012 [...] Date Smoking Tobacco: Every Day Cigarettes 0.5 22.5 Started: 09/17/2002 Smokeless Tobacco: Never Tobacco Cessation:Ready to Q uit: Not Asked; Counseling Given: Not Answered Alcohol Use Standard Drinks/Week Comments No 0 (1 standard drink = 0.6 oz pur e alcohol) Sex and Gender Information Value Date Recorded Sex Assigned at Not on file Legal Sex Male 2:53 PM EST Gender Identity Not on file Sexual Orientation Not on file Obstetrics History Last Filed Vital Signs Vital Sign Reading Time Taken Comments Blood Pressure 90/53 02/10/2025 8:29 AM EDT Pulse 81 02/10/2025 8:29 AM EDT Temperature 36.5 C (97.7 F) 02/10/2025 8:29 AM EDT Respiratory Rate 16 02/10/2025 8:29 AM EDT Oxygen Saturation - - Inhaled Oxygen Concentration - - Weight 91.2 kg (201 lb) 02/10/2025 8:29 AM EDT Height 168 cm (5' 6.14 ) 02/10/2025 8:29 AM EDT Body Mass Index 32.3 02/10/2025 8:29 AM EDT Plan of Treatment Upcoming Encounters Date Type Department Care Team (Late st Contact Info) Description 02/11/2026 9:00 AM EDT Office Visit Adult Medicine [address] [phone] Stefan Ceja, ARNOLDO [address] [place] [id number] Health Maintenance Due Date Last Done Comments Hepatitis A Vaccines (1 of 2 - Risk 2-dose series) 08/20/2003 Hepatitis B Vaccines (1 of 3 - 19+ 3-dose series) 08/20/2003 Pneumococcal Vaccine: Pediatrics (0 to 5 Years) and At-Risk Patients (6 to 49 Years) (1 of 2 - PCV) 08/20/2003 HPV Vaccines (1 - 3-dose SCD M series) 08/20/2011 Social Influencers of Health Screening 05/14/2022 Depression Screening 06/05/2024 11/06/2023 Influenza Vaccine (#1) 2025 Postp oned from 02/03/2025 (Patient Refused) COVID-19 Vaccine (1 - 2023-2 5 season) 2026 Postponed from 02/03 (Patient Refused) Cholesterol Screening (Lipid Panel) 02/10/2030 02/10/2025, 06/01/2023 DTaP,Tdap,and Td Vaccines (4 - Td or Tdap) 06/01/2033 06/01/2023, 07/21/2010, 03/21/1997 RSV Immunization Adult Patients (1 - 1-dose 75+ series) 08/20/2059 HIV Screening Completed 08/05/2004 Hepatitis C Screening Completed 02/10/2025 HIB Vaccines Aged Out No longer eligi [...] Procedure Name Priority Date/Time Associated Diagnosis Comments CBC WITH AUTO DIFFERENTIAL Routine 02/10/2025 8:57 AM EDT Tobacco use disorder Anxiety and depression Alcohol use disorder Screening for cardiovascular condition Encounter for hepatitis C screening test for low risk patient Screening for diabetes mellitus HEPATITIS C ANTIBODY Routine 02/10/2025 8:57 AM EDT Tobacco use disorder Anxiety and depression Alcohol use disorder Screening for cardiovascular condition Encounter for hepatitis C screening test for low risk patient Screening for diabetes mellitus THYROID STIMULATING HORMONE WITH REFLEX TO FREE T4 AND FREE T3 Routine 02/10/2025 8:57 AM EDT Tobacco use disorder Anxiety and depression Alcohol use disorder Screening for cardiovascular condition Encounter for hepatitis C screening test for low risk patient Screening for diabetes mellitus CBC AND DIFFERENTIAL Routine 02/10/2025 8:57 AM EDT Tobacco use disorder Anxiety and depression Alcohol use disorder Screening for cardiovascular condition Encounter for hepatitis C screening test for low risk patient Screening for diabetes mellitus HEMOGLOBIN A1C Routine 02/10/2025 8:57 AM EDT Tobacco use disorder Anxiety and depression Alcohol use disorder Screening for cardiovascular condition Encounter for hepatitis C screening test for low risk patient Screening for diabetes mellitus LIPID PANEL WITH REFLEX TO DIRECT LDL Routine 02/10/2025 8:57 AM EDT Tobacco use disorder Anxiety and depression Alcohol use disorder Screening for cardiovascular condition Encounter for hepatitis C screening test for low risk patient Screening for diabetes mellitus COMPREHENSIVE METABOLIC PANEL Routine 02/10/2025 8:57 AM EDT Tobacco use disorder Anxiety and depression Alcohol use disorder Screening for cardiovascular condition Encounter for hepatitis C screening test for low risk patient Screening for diabetes mellitus DEPRESSION SCREENING Routine 11/06/2023 HIV SCREENING Routine 08/05/2004 from Last 3 Months or Most Recently Relevant to Health Maintenance Results * Hepatitis C antibody (02/10/2025 8:57 AM EDT) [facility] Hepatitis C Antibody Negative Negative LAB CHEMISTRY METHOD 02/10/2025 2:04 PM EDT [facility] Blood Venous blood specimen / Unknown Venipuncture / Unknown 02/10/2025 8:57 AM EDT 02/10/2025 8:57 AM EDT us Flor Nixon MD LAB BLOOD ORDERABLES F inal Result Performing Organization Address [facility]/ZIP Co de Phone Number [facility] [address] [place] [address], [place] [phone] * Thyroid stimulating hormone with reflex to free t4 and free t3 (02/10/2025 8:57 AM EDT) TSH 1.01 0.40 - 4.00 mcIU/mL LAB CHEMISTRY METHOD 02/10/2025 1:24 PM EDT [facility] Blood Venous blood specimen / Unknown Venipuncture / Unknown 02/10/2025 8:57 AM EDT 02/10/2025 8:57 AM EDT Flor Nixon MD LAB BLOOD ORDERABLES F inal Result Performing Organization Address [facility]/ZIP Co de Phone Number [facility] [address] [place] [address], [place] [phone] * Lipid panel with reflex to direct LDL (02/10/2025 8:57 AM EDT) Cholesterol 148 0 - 200 mg/dL LAB CHEMISTRY METHOD 02/10/2025 12:33 PM EDT [facility] Triglycerides 62 0 - 150 mg/dL LAB CHEMISTRY METHOD 02/10/2025 12:33 PM EDT [facility] HDL 42 >=40 mg/dL LAB CHEMISTRY METHOD 02/10/2025 12:33 PM EDT [facility] LDL Calculated 94 0 - 100 mg/dL LAB CHEMISTRY METHOD 02/10/2025 12:33 PM EDT [facility] Comment:Estimated LDL Calcul ated using equation: Total cholesterol - HDL cholesterol - (Triglycerides/5) VLDL Cholesterol Emery 12.4 mg/dL LAB CHEMISTRY METHOD 02/10/2025 12:33 PM EDT [facility] Non HDL Chol. (LDL+VLDL) 106 <145 mg/dL LAB CHEMISTRY METHOD 02/10/2025 12:33 PM EDT [facility] Chol/HDL Ratio 3.5 0.0 - 4.4 LAB CHEMISTRY METHOD 02/10/2025 12:33 PM EDT [facility] Blood Venous blood specimen / Unknown Venipuncture / Unknown 02/10/2025 8:57 AM EDT 02/10/2025 8:57 AM EDT us Flor Nixon MD LAB BLOOD ORDERABLES F inal Result [facility] [address] [place] [address], * (ABNORMAL) CBC auto differential (02/10/2025 8:57 AM EDT) WBC 9.5 4.8 - 10.8 K/mcL LAB HEMETOLOGY METHOD 02/10/2025 11:39 AM [facility] RBC 4.40(L) 4.50 - 5.50 M/mcL LAB HEMETOLOGY METHOD 02/10/2025 11:39 AM [facility] Hemoglobin 14.9 13.5 - 17.5 g/dL LAB HEMETOLOGY METHOD 02/10/2025 11:39 AM [facility] Hematocrit 44.5 42.0 - 54.0 % LAB HEMETOLOGY METHOD 02/10/2025 11:39 AM [facility] MCV 100.9(H) 79.0 - 98.0 FL LAB HEMETOLOGY METHOD 02/10/2025 11:39 AM [facility] MCH 33.8(H) 27.0 - 32.0 pcg LAB HEMETOLOGY METHOD 02/10/2025 11:39 AM [facility] MCHC 33.5 32.0 - 37.0 g/dL LAB HEMETOLOGY METHOD 02/10/2025 11:39 AM [facility] RDW 13.6 11.0 - 15.0 % LAB HEMETOLOGY METHOD 02/10/2025 11:39 AM [facility] Platelets 325 130 - 400 K/mcL LAB HEMETOLOGY METHOD 02/10/2025 11:39 AM [facility] MPV 9.8 7.0 - 11.0 FL LAB HEMETOLOGY METHOD 02/10/2025 11:39 AM [facility] NRBC 0.0 <1.0 % LAB HEMETOLOGY METHOD 02/10/2025 11:39 AM [facility] NRBC Absolute 0.00 <0.10 K/mcL LAB HEMETOLOGY METHOD 02/10/2025 11:39 AM [facility] Neutrophils Relative 51.5 % LAB HEMETOLOGY METHOD 02/10/2025 11:39 AM [facility] Lymphocytes Relative 28.6 % LAB HEMETOLOGY METHOD 02/10/2025 11:39 AM [facility] Monocytes Relative 15.4 % LAB HEMETOLOGY METHOD 02/10/2025 11:39 AM [facility] Eosinophils Relative 3.0 % LAB HEMETOLOGY METHOD 02/10/2025 11:39 AM [facility] Basophils Relative 1.3 % LAB HEMETOLOGY METHOD 02/10/2025 11:39 AM [facility] Immature Granulocytes Relative 0.2 % LAB HEMETOLOGY METHOD 02/10/2025 11:39 AM [facility] Neutrophils Absolute 4.91 1.50 - 7.00 K/mcL LAB HEMETOLOGY METHOD 02/10/2025 11:39 AM EDT [facility] Lymphocytes Absolute 2.73 1.00 - 5.00 K/[facility] LAB HEMETOLOGY METHOD 02/10/2025 11:39 AM EDT [facility] Monocytes Absolute 1.47(H) 0.20 - 1.00 K/[facility] LAB HEMETOLOGY METHOD 02/10/2025 11:39 AM EDT [facility] Eosinophils Absolute 0.29 0.00 - 0.50 K/[facility] HEMETOLOGY METHOD 02/10/2025 11:39 AM EDT [facility] Basophils Absolute 0.12 0.00 - 0.20 K/[facility] HEMETOLOGY METHOD 02/10/2025 11:39 AM EDT [facility] Immature Granulocytes Absolute 0.02 0.00 - 0.03 K/[facility] HEMETOLOGY METHOD 02/10/2025 11:39 AM EDT [facility] Blood Venous blood specimen / Unknown Venipuncture / Unknown 02/10/2025 8:57 AM EDT 02/10/2025 8:57 AM EDT us Flor Nixon MD LAB BLOOD ORDERABLES F inal Result [facility] [address] [place] [address], * Hemoglobin A1c (02/10/2025 8:57 AM EDT) Hemoglobin A1C 5.7 <6.5 % LAB CHEMISTRY METHOD 02/10/2025 11:10 PM EDT [facility] Mean Bld Glu Estim. 117 mg/dL LAB CHEMISTRY METHOD 02/10/2025 11:10 PM EDT [facility] Blood Venous blood specimen / Unknown Venipuncture / Unknown 02/10/2025 8:57 AM EDT 02/10/2025 8:57 AM EDT us Flor Nixon MD LAB BLOOD ORDERABLES F inal Result [facility] [address] [place] [address], [place] [phone] * Comprehensive metabolic panel (02/10/2025 8:57 AM EDT) Sodium 138 133 - 145 mmol/L LAB CHEMISTRY METHOD 02/10/2025 12:33 PM [facility] Potassium 4.0 3.5 - 5.5 mmol/L LAB CHEMISTRY METHOD 02/10/2025 12:33 PM [facility] Chloride 105 96 - 110 mmol/L LAB CHEMISTRY METHOD 02/10/2025 12:33 PM [facility] CO2 28 21 - 32 mmol/L LAB CHEMISTRY METHOD 02/10/2025 12:33 PM [facility] Anion Gap 5 3 - 11 LAB CHEMISTRY METHOD 02/10/2025 12:33 PM [facility] Glucose 81 70 - 100 mg/dL LAB CHEMISTRY METHOD 02/10/2025 12:33 PM [facility] BUN 13 5 - 25 mg/dL LAB CHEMISTRY METHOD 02/10/2025 12:33 PM [facility] Creatinine 0.78 0.70 - 1.30 mg/dL LAB CHEMISTRY METHOD 02/10/2025 12:33 PM [facility] eGFR 116 >=60 mL/min/1. 73m2 LAB CHEMISTRY METHOD 02/10/2025 12:33 PM [facility] Comment:Calculation based on the Chronic Kidney Disease Epidemiology Collaboration (CKD-EPI) equation refit without adjustment for race. BUN/Creatinine Ratio 16.7 LAB CHEMISTRY METHOD 02/10/2025 12:33 PM [facility] Calcium 9.4 8.5 - 10.5 mg/dL LAB CHEMISTRY METHOD 02/10/2025 12:33 PM EDT [facility] AST (SGOT) 34 10 - 42 unit/L LAB CHEMISTRY METHOD 02/10/2025 12:33 PM [facility] ALT (SGPT) 29 10 - 60 unit/L LAB CHEMISTRY METHOD 02/10/2025 12:33 PM EDT [facility] Alkaline Phosphatase 95 42 - 121 unit/L LAB CHEMISTRY METHOD 02/10/2025 12:33 PM EDT [facility] Total Protein 7.3 6.0 - 8.0 g/dL LAB CHEMISTRY METHOD 02/10/2025 12:33 PM [facility] Albumin 3.7 3.2 - 5.0 g/dL LAB CHEMISTRY METHOD 02/10/2025 12:33 PM [facility] Total Bilirubin 0.4 0.0 - 1.4 mg/dL LAB CHEMISTRY METHOD 02/10/2025 12:33 PM T [facility] Blood Venous blood specimen / Unknown Venipuncture / Unknown 02/10/2025 8:57 AM EDT 02/10/2025 8:57 AM EDT Flor Nixon MD LAB BLOOD ORDERABLES F inal Result [facility] [address] [place] [address], [place] [phone] * Depression Screening (11/06/2023) Depression Screening Abstracted us Historical Provider HEALTH MAINTENANCE Final Result * HIV Screening (08/05/2004) HIV Screening Abstracted us Historical Provider HEALTH MAINTENANCE Final Result from Last 3 Months or Most Recently Relevant to Health Maintenance Insurance [facility] Care Teams Dispatcher Chief Oil Relationship Specialty Start Date End Date Flor Nixon MD [address] [place] [id number] PCP - General 11/06/23
--- OUTSIDE RECORDS SUMMARY | 2025-04-05 13:55 | XMS_ITS | Clinical Summary ---
Author Organization [facility] Address [address] [place] [address] Care Team Providers Care Drawstring Knotter Name Role Phone Unavailable Primary Care Provider [...] Mass Index - - Plan of Treatment Health Maintenance Due Date Last Done Comments Anxiety Screening 1984 Diabetes Screening 1984 Hepatitis C Screening 1984 Tobacco Screening 1984 HIV Screening 08/20/1999 Imm-Hepatitis B (1 of 3 - 19 + 3-dose series) 08/20/2003 Imm-HPV (1 - 3-dose SCDM series) 08/20/2011 Alcohol and Drug Screen 06/05/2024 Depression Annual Screen 06/05/2024 [id number] ( season) 2025 Imm-Influenza (#1) 2025 Dental Examination 02/09/2025 02/08/2024 Hypertension Screening (#1) [...] Most Recently Relevant to Health Maintenance Insurance [place]
--- OUTSIDE RECORDS SUMMARY | 2025-04-05 13:55 | XMS_ITS ---
Author Name [facility] Organization Unknown Care Team Organization Name Specialty Phone Email Start Date End Da te [facility] Meet Elliott DO Primary Care 08/10/202201/03 [facility] Criselda Primary Care 04/12/2022 01/22/2024
--- OUTSIDE RECORDS SUMMARY | 2025-04-05 13:55 | XMS_ITS | Clinical Summary ---
Author Organization [employer] Address [address] [place] [address] Care Team Providers Care Assistant Director Of Admissions Name Role Phone Unavailable Primary Care Provider [...] Comments Depression Screening 1984 Lipid Panel 1984 Disability Screening 1984 Alcohol/Substance Use Screening 1996 Tobacco Screening 1996 Family Planning (PISQ) 08/20/1999 HPV Vaccines (1 - Male 3-dos e series) 08/20/1999 DTaP/Tdap/Td Vaccines (1 - Tdap) 08/20/2003 Hepatitis B Vaccines (1 of 3 - 19+ 3-dose series) 08/20/2003 COVID-19 Vaccine (1 - 2023-2 5 season) 2025 Influenza Vaccine (#1) 2025 Zoster Vaccines (1 of 2) 2034 RSV [...] Years) and At-Risk Patients (6 to 49) Years Aged Out No longer eligible b ased on patient's age to complete this topic RSV under 20 months Aged Out No longe r eligible based on patient's age to complete this topic Rotavirus Vaccines Aged Out No longer eligible based on patient's age to complete this topic
--- NOTE | 2025-04-05 14:47 | PC.NURSE ---
Security to bedside as patient is attempting to leave. Attempt to re-direct patient but unwilling to listen. Security able to get him back to bed. Pt called sister for ride. PA to bedside to discuss options with patient.
[2025-04-05 15:20] VITALS: BP 130/78; PULSE 103; RESP 18; O2SAT 92
[2025-04-05 15:41] VITALS: BP 130/78; PULSE 103; RESP 18; TEMP -17.7; TEMP 0; O2SAT 92
--- NOTE | 2025-04-05 15:43 | PC.NURSE ---
DC paperwork reviewed with patient and family members. Pt getting ride home from sister, other family member driving patients car from hospital
== END 2025-04-05 15:44 | disposition home or self-care (01) ==
PROVIDERS: Physician Assistant; Emergency Provider Emergency Medicine Emergency Medical Services
DX: F10.129 Alcohol abuse with intoxication, unspecified (principal); Y90.8 Blood alcohol level of 240 mg/100 ml or more; S42.302D Unspecified fracture of shaft of humerus, left arm, subsequent encounter for fracture with routine healing; R00.0 Tachycardia, unspecified
CPT/HCPCS: 36415; 80048; 80076; 80307; 83735; 85025; 93005; 99283; 99284

== ENCOUNTER → 2025-04-05 13:22 | Outpatient (BNV) | payer OTHER, SELFPAY | PROVIDERS: Emergency Provider Emergency Medicine Emergency Medical Services; Visit Provider Internal Medicine | DX: R00.0 Tachycardia, unspecified (principal) | CPT/HCPCS: 93010 ==